=== PATIENT | male | born 2000 | race Caucasian/White ===

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

== ENCOUNTER 2021-05-02 18:05 | Emergency (ER) | payer OTHER ==
[~2021-05-02 18:05] MED LIST: MEDROL4 MG PO
[2021-05-02] MEDS ORDERED: PREDNISONE20 MG PO (19:25)
[2021-05-02] MEDS ORDERED: KENALOG 0.5% CR15 GM EXT (19:25)
== END 2021-05-02 19:35 | disposition home or self-care (01) ==
LOC: ER1 18:05
DX: L50.0 Allergic urticaria (principal); T49.2X5A Adverse effect of local astringents and local detergents, initial encounter
CPT/HCPCS: 99282

== ENCOUNTER 2022-02-01 21:42 | Emergency (ER) | payer OTHER ==
[~2022-02-01 21:42] MED LIST changes: +KENALOG 0.5% CR15 GM EXT; +PREDNISONE20 MG PO
[2022-02-01 22:48] LABS: HEMOGLOBIN 14.8 gm/dl (14.0-17.5); RED BLOOD COUNT 5.03 M/UL (4.20-5.50); WHITE BLOOD COUNT 6.4 K/UL (4.5-11.0)
[2022-02-01 23:14] LABS: BUN/CREATININE RATIO 6 (0-10)
[2022-02-01] MEDS ORDERED: ZOFRAN ODT 4 MG4 MG SL (23:34)
== END 2022-02-02 00:08 | disposition home or self-care (01) ==
LOC: ER1 21:42
PROVIDERS: Physician Assistant Medical
DX: U07.1 COVID-19 (principal)
CPT/HCPCS: 0240U; 71045; 80053; 81001; 83605; 85025; 87040; 87086; 96361; 96374; 96375; 99284; J1885; J2405